=== PATIENT | male | born 1940 | race Caucasian/White ===

== ENCOUNTER 2017-04-30 09:03 | Emergency (ER) | payer OTHER, MEDICARE ==
[~2017-04-30] VITALS: Ht 180.3 cm; Wt 110.6 kg
[~2017-04-30 09:03] MED LIST: GLUCOSAMINE &1 EACH PO; OMEGA 3 1,0001 EACH PO; PLENDIL5 MG PO; PRESERVISION S1 EACH PO; TRICOR48 MG PO; Vicodin,Lortab 5/500 PO; ZESTRIL,PRINIVI10 MG PO
[2017-04-30] MEDS ORDERED: AUGMENTIN875 MG PO (11:52)
[2017-04-30 13:00] VITALS: BP 179/93
== END 2017-04-30 13:01 | disposition home or self-care (01) ==
LOC: EME 09:03
DX: S61.451A Open bite of right hand, initial encounter (principal); Z23 Encounter for immunization; W55.01XA Bitten by cat, initial encounter; Z88.6 Allergy status to analgesic agent
CPT/HCPCS: 73130; 99281; 99283

== ENCOUNTER 2017-05-03 07:58 | Emergency (ER) | payer OTHER, MEDICARE ==
[~2017-05-03] VITALS: Ht 180.3 cm; Wt 108.8 kg
[~2017-05-03 07:58] MED LIST changes: +AUGMENTIN875 MG PO
[2017-05-03 09:39] VITALS: BP 147/62
== END 2017-05-03 09:45 | disposition home or self-care (01) ==
LOC: EME 07:58
PROC: 3E0234Z Introduction of Serum, Toxoid and Vaccine into Muscle, Percutaneous Approach (ICD-10-PCS; principal; 2017-05-03)
DX: Z20.3 Contact with and (suspected) exposure to rabies (principal)
CPT/HCPCS: 99281; 99283